=== PATIENT | female | born 1950 | race Caucasian/White ===

== ENCOUNTER 2017-07-17 15:22 | Observation (INO) | END 2017-07-18 13:00 | disposition home or self-care (01) ==

== ENCOUNTER 2018-09-18 07:35 | Day surgery (SDC) | payer MEDICARE ==
[~2018-09-18] VITALS: Ht 147.3 cm; Wt 48.4 kg
[2018-09-18] VITALS (33 sets, daily range): BP systolic 100–168; BP diastolic 57–87; PULSE 42–60; RESP 13–23; Ht 147.3 cm; Wt 48.4 kg
[2018-09-18] MEDS ORDERED: OMEP20CA16 PO (07:58)
[2018-09-18] MEDS ORDERED: CEFAZOLIN 2 GM/50 ML (PMX) 50 ML IVPB SCH (08:00)
[2018-09-18] MEDS ORDERED: SOD CHLORIDE 0.9% 1,000 ML IV SCH (08:00)
--- NOTE | 2018-09-18 09:15 | PREAC ---
Date/Time of Note Date/Time of Note DATE: 09/18/18 TIME: 09:13 Anesthesia Eval and Record Evaluation Time Pre-Procedure Interview DATE: 09/18/18 TIME: 09:13 Age 68 Sex female NPO: 8 hrs Preoperative diagnosis ventral hernia Planned procedure laparoscopic ventral hernia repair Past Medical History Past Medical History: Includes GI: GERD Surgery & Anesthesia Issues No known issue Meds Anticoagulation: No Beta Karma within 24 hr: No Reason Beta Karma not given: Pt. not on B-Karma Reported Medications Omeprazole* (Omeprazole*) 20 Mg Capsule., 20 MG PO DAILY, #30 CAP 09/18/18 Current Medications Sodium Chloride 1,000 ml @ 75 mls/hr [id number] IV Last administered on 09/18/18at 08:54; Admin Dose 75 MLS/HR; Start 09/18/18 at 08:00; Stop 09/18/18 at 20:00 Meds reviewed: Yes Allergies Coded Allergies: No Known Drug Allergies (Unverified Allergy, Unknown, 09/18/18) Allergies Reviewed: Yes Labs/Studies Labs Reviewed: Reviewed by anesthesiologist test: N/A Pre-procedure Exam Last vitals Vital Signs Date Temp Pulse Resp B/P (MAP) Pulse Ox O2 O2 Flow FiO2 Time Delivery Rate 09/18/18 98.1 57 16 148/65 98 08:00 (92) Airway: Adequate mouth opening, Adequate thyromental dist Mallampati: Mallampati I Teeth: Normal Lung: Normal Heart: Normal ASA Physical Status ASA physical status: 2 Emergency: None Planned Anesthetic General/MAC: ETT Planned Pain Management Parenteral pain med Pre-operative Attestations Prior to commencing anesthesia and surgery, the patient was re-evaluated, there was verification of: *The patient's identity *The results of appropriate recent lab work and preoperative vital signs *The above evaluation not changing prior to induction *Anesthetic plan, risk benefits, alternative and complications discussed with patient/family; questions answered; patient/family understands, accepts and wishes to proceed. NEGAR FROST Sep 18, 2018 09:15
[2018-09-18] MEDS ORDERED: PROPOFOL 100 ML ONE (09:20)
[2018-09-18] MEDS ORDERED: ROCURONIUM 50 MG INJ ONE (09:24)
[2018-09-18] MEDS ORDERED: DEXAMETHASONE 4 MG/ML 5 ML INJ ONE (10:01)
[2018-09-18] MEDS ORDERED: ONDANSETRON 4 MG INJ ONE (10:02)
[2018-09-18] MEDS ORDERED: POLYMYXIN/BACITRACIN 1L IRRIG IRR ONE (10:33)
[2018-09-18] MEDS ORDERED: ROPIVACAINE 0.5 % 30 ML VIAL ONE ×2 (11:22)
[2018-09-18] MEDS ORDERED: KETOROLAC 30 MG INJ ONE (11:42)
[2018-09-18] MEDS ORDERED: NEOSTIGMINE 3 MG/3 ML SYRINGE ONE (11:48)
[2018-09-18] MEDS ORDERED: GLYCOPYRROLATE 0.4 MG INJ ONE (11:48)
--- NOTE | 2018-09-18 11:56 | PAC ---
Date/Time of Note Date/Time of Note DATE: 09/18/18 TIME: 11:55 Post-Anesthesia Notes Post-Anesthesia Note Last documented vital signs Vital Signs Date Temp Pulse Resp B/P (MAP) Pulse Ox O2 O2 Flow FiO2 Time Delivery Rate 09/18/18 98.1 57 16 148/65 98 1155 (92) Activity: WNL Respiratory function: WNL Cardiovascular function: WNL Mental status: Baseline Pain reasonably controlled: Yes Hydration appropriate: Yes Nausea/Vomiting absent: Yes NEGAR FROST Sep 18, 2018 11:56
[2018-09-18] MEDS ORDERED: EPHEDrine SULFATE 50 MG/5 ML SYG IV PRN (12:00)
[2018-09-18] MEDS ORDERED: DIPHENHYDRAMINE 50 MG INJ IV PRN (12:00)
[2018-09-18] MEDS ORDERED: MEPERIDINE 25 MG INJ IV PRN (12:00)
[2018-09-18] MEDS ORDERED: LABETALOL HCL 20MG INJ IV PRN (12:00)
[2018-09-18] MEDS ORDERED: hydrALAzine 20 MG INJ IV PRN (12:00)
[2018-09-18] MEDS ORDERED: KETOROLAC 30 MG INJ IV PRN (12:00)
[2018-09-18] MEDS ORDERED: ONDANSETRON 4 MG INJ IV PRN (12:00)
[2018-09-18] MEDS ORDERED: OXYCODONE/ACETAMINOPHEN (5/325) TAB PO PRN ×2 (12:00)
[2018-09-18] MEDS ORDERED: FENTAnyl 50 MCG/ML VIAL IV PRN ×2 (12:00)
[2018-09-18] MEDS ORDERED: METOCLOPRAMIDE 10 MG INJ IV PRN (12:00)
[2018-09-18] MEDS ORDERED: HYDROmorphONE 1 MG/5 ML IV SYRINGE IV PRN ×2 (12:00)
[2018-09-18] MEDS ORDERED: ALBUTEROL 0.083% (NEB) 2.5 MG/3 ML AMP HHN PRN (12:00)
--- NOTE | 2018-09-18 12:14 | OPR ---
Date/Time of Note Date/Time of Note DATE: 09/18/18 TIME: 11:54 Operative Report Preoperative Diagnosis Incarcerated ventral hernia Postoperative Diagnosis Dense intra-abdominal adhesions Incarcerated ventral hernia Left inguinal hernia Operation/Procedure Performed Laparoscopic lysis of adhesions Laparoscopic ventral hernia repair with mesh, intraperitoneal underlay mesh Surgeon Matt Wang MD [facility] Desktop Publisher Royce Jackson MD Anesthesia Type: general Estimated Blood Loss: minimal Transfusion none Specimen Hernia sac contents, fat Grafts/Implants none Complications none Pt Condition Post Procedure: stable Disposition: PACU Indications This patient underwent a laparoscopic cholecystectomy and a right inguinal hernia repair a year ago. The right inguinal hernia was done openly and caused her to have some chronic pain that has been slowly improving. As her right inguinal hernia was improving and I was keeping an eye on it she was complaining of epigastric pain. Work-up reveals her to have a ventral hernia at the site of the subxiphoid incision from her laparoscopic cholecystectomy where a 10 mm port had been placed and her gallbladder had been extracted. She reports that following meals she develops epigastric pain and nausea and significant discomfort and she requested that the hernia be fixed to provide symptomatically relief. Procedure Description Patient was laid supine on the OR table and time out was called. Abd prepped and draped in sterile manner. Abx given. A 5 mm incision was made at Dorado's point at LUQ and Veress needle entered until three clicks heart with reassuring saline test. Abd insufflated to 15 mm Hg. Abdomen entered with Optiview trocar under visualization. Area of entry inspected and no injury was noted. A second port was placed at LLQ (12 mm) after care was taken to avoid the inferior epigastric vessels. The ventral hernia was noted and multiple adhesions were noted as well. These adhesions were lysed laparoscopically and the fat reduced out of the hernia. The hernia was about 4 cm wide transversely and 3 cm wide longitudinally. Had significant amount of fat from the omentum and as well as the patient's ligamentum teres. Using the LigaSure device the ligamentum teres and the subsequent falciform ligament were divided and lysed. By pushing the area of the hernia from the outside the sac was inverted into the peritoneum and then excised with the use the LigaSure as was all accompanying intra-sac content which was all omental fat. These were removed through the 12 mm left lower quadrant port. I then noted extra adhesions in the left upper quadrant as well as the right upper quadrant and right lower quadrant between the colon omentum and patient's peritoneum and these were all lysed with the use of the LigaSure device. Over 30 minutes was spent caring out lysis of adhesions so that the dissection required for placement of the mesh and adequate visualization of the hernia sac could be conducted. A Echo 2 Ventralight mesh measuring 15 cm in diameter was inserted through the 12 mm port and then tacked up against the fascia using two layers of Securestrap tacks one centimeter apart. The Echo unfolding component was grasped and removed through the 12 mm port. The abdomen was inspected and noted to be hemostatic. Upon examining the patient's abdomen and noted that she had a left inguinal hernia that had no content going through it in the left it alone and will discuss potential repair in the future with the patient if she becomes symptomatic. I noted that the area of the previous right inguinal hernia the mesh that had been placed externally was protruding into the peritoneal cavity but was covered with a layer of peritoneum. I carefully inspected the entire area of the mesh and the mesh was tacked up secure against tissue of the defect and accompanying bony structures completely sealing the area. There was some adhesions between the fat and nearby mesentery to the area of the mesh and these were bluntly lysed with the use of the [place] device. It was confirmed that the area was hemostatic and there was no intestinal injury after lysis of adhesions. The Johny Aparna fascial closure device was then used to close the fascia using interrupted #1 Vicryl suture and 3 passes of this was used in order to ensure good secure closure given this patient's extensive history of acquiring hernias following incisions. All instrument, sponge, and needle counts were correct at the end of the procedure x 2. The sites were then closed using 4-0 Monocryl subcuticular sutures. Wet dry dressings were applied and the wound was covered with Dermabond dressing. Patient was then discontinued from anesthesia and disposition to the postanesthesia care unit in stable condition. MATT WANG Sep 18, 2018 12:13
[2018-09-18] MEDS: FENTAnyl 50 MCG/ML VIAL IV PRN ×4 (12:36→13:39)
[2018-09-18] MEDS: HYDROmorphONE 1 MG/5 ML IV SYRINGE IV PRN ×4 (12:36→13:38)
== END 2018-09-18 15:25 | disposition home or self-care (01) ==
LOC: SDS 07:35
PROVIDERS: ATTEND Surgery Surgical Critical Care
DX: K43.9 Ventral hernia without obstruction or gangrene (principal); K66.0 Peritoneal adhesions (postprocedural) (postinfection); K21.9 Gastro-esophageal reflux disease without esophagitis
CPT/HCPCS: 49653; J1100; J1170; J1885; J2175; J2405; J2710; J2765; J2795; J3010